=== PATIENT | male | born 1970 | race Hispanic/Latino ===

== ENCOUNTER 2019-06-17 10:26 | Emergency (ER) | payer BC, OTHER ==
--- NOTE | 2019-06-17 11:47 | RAD ---
Left knee 4 views HISTORY: Left knee pain. FINDINGS: Joint spaces are preserved. Minimal osteophytosis. No acute fracture or dislocation evident . Suprapatellar bursa partially obscured on the lateral view due to to overlying artifact. No fluid distention suspected. IMPRESSION: No acute osseous abnormalities are demonstrated.
== END 2019-06-17 11:30 | disposition home or self-care (01) ==
LOC: ERS 10:26
DX: M70.52 Other bursitis of knee, left knee (principal)

== ENCOUNTER 2023-01-28 08:06 | Outpatient (CLI) | payer BC | END 2023-01-28 08:07 | disposition home or self-care (01) | LOC: BICRAD 08:06 | DX: M54.6 Pain in thoracic spine (principal); R07.89 Other chest pain; M47.814 Spondylosis without myelopathy or radiculopathy, thoracic region; M41.9 Scoliosis, unspecified | CPT/HCPCS: 71046; 72072 ==

== ENCOUNTER 2024-02-03 14:45 | Outpatient (CLI) | payer OTHER | END 2024-02-03 14:46 | disposition home or self-care (01) | LOC: BICCT 14:45 | DX: M54.2 Cervicalgia (principal); M47.812 Spondylosis without myelopathy or radiculopathy, cervical region; M48.02 Spinal stenosis, cervical region; M25.78 Osteophyte, vertebrae; Z98.1 Arthrodesis status | CPT/HCPCS: 72125 ==